=== PATIENT | female | born 1965 | race Caucasian/White ===

== ENCOUNTER → 2019-04-24 | Outpatient (CLI) | payer OTHER ==
[~2019-04-24] MED LIST: FLUO20CA8 PO; LISI10TA2 PO
--- NOTE | 2019-04-24 16:17 | REPMRS ---
Patient History The patient states she has not had a clinical breast exam in over a year. No known family history of cancer. Digital Mammo Screening Bilat: April 24, 2019 - Exam #: [id number] Bilateral CC and MLO view(s) were taken. Technologist: Lyn Penaloza, Technologist Prior study comparison: September 20, 2017, bilateral digital mammo screening bilat performed at [facility]. June 16, 2016, bilateral digital mammo screening bilat performed at [facility]. FINDINGS: There are scattered fibroglandular densities. There has been no change in the appearance of the mammogram from the prior studies. There is a mild amount of residual fibroglandular tissue which is fairly symmetric. There is no interval development of dominant mass, architectural distortion, or clustered microcalcification suggestive of malignancy. Assessment: BI-RADS/ACR category 1 mammogram. Negative Mammogram. Recommendation Routine screening mammogram in 1 year (for women over age 40). This mammogram was interpreted with the aid of an FDA-approved computer-aided dectection system. Electronically Signed By: Tunde Bonds MD 04/24/19 2905
== END ==
LOC: M RAD 15:36
PROVIDERS: ATTEND Student in an Organized Health Care Education/Training Program
DX: Z12.31 Encounter for screening mammogram for malignant neoplasm of breast (principal)

== ENCOUNTER → 2020-10-31 | Outpatient (CLI) | payer SELFPAY ==
[~2020-10-31] MED LIST changes: +FLUO20CA20 PO; -FLUO20CA8 PO; +LISI10TA15 PO; -LISI10TA2 PO
== END ==
LOC: M LABSMTC 10:10
PROVIDERS: ATTEND Pediatrics
DX: Z11.59 Encounter for screening for other viral diseases (principal)

== ENCOUNTER → 2022-10-10 | Outpatient (CLI) | payer OTHER ==
[~2022-10-10] MED LIST changes: +FLUO-96 PO; -FLUO20CA20 PO; -LISI10TA15 PO; +LISI10TA24 PO
== END ==
LOC: M WHC 15:34
PROVIDERS: ATTEND Student in an Organized Health Care Education/Training Program
DX: Z12.31 Encounter for screening mammogram for malignant neoplasm of breast (principal)

== ENCOUNTER → 2024-02-28 | Outpatient (CLI) | payer OTHER | LOC: M WHC 15:12 | PROVIDERS: ATTEND Nurse Practitioner Family | DX: Z12.31 Encounter for screening mammogram for malignant neoplasm of breast (principal) ==

== ENCOUNTER 2024-11-24 08:10 | Day surgery (SDC) | payer OTHER ==
[~2024-11-24] VITALS: Ht 160 cm; Wt 57.6 kg
[~2024-11-24 08:10] MED LIST changes: +LR 1,000 ML IV SCH
[2024-11-24] MEDS ORDERED: MIDAZOLAM INJ 2MG/2ML VIAL As Ordered ONE (08:57)
[2024-11-24] MEDS ORDERED: fentaNYL 100 MCG/2 ML INJECTION As Ordered ONE (08:57)
[2024-11-24] MEDS: PHENYLEPHRINE 2.5% OPHTH SOL 2ML OS SCH (09:08)
[2024-11-24] MEDS: CYCLOPENTOLATE 1% OPHTH SOLN 2ML BTL OS SCH (09:09)
[2024-11-24] MEDS: FLURBIPROFEN 0.03% OPHTH SOLN 2.5 ML OS SCH (09:09)
[2024-11-24] MEDS: TETRACAINE 0.5% OPHTH SOLN 4ML OS SCH (09:09)
[2024-11-24] MEDS: LIDOCAINE 1% SDV 5ML VIAL As Ordered ONE (10:39)
[2024-11-24] MEDS: CEFUROXIME 1MG/0.1ML INTRACAMERAL INJ As Ordered ONE (10:47)
[2024-11-24 10:57] VITALS: BP 119/80; TEMP 97.3; O2SAT 98
== END 2024-11-24 11:14 | disposition home or self-care (01) ==
LOC: M SDC 08:10
PROVIDERS: ATTEND Ophthalmology
DX: H25.12 Age-related nuclear cataract, left eye (principal); H25.012 Cortical age-related cataract, left eye; I10 Essential (primary) hypertension; Z79.899 Other long term (current) drug therapy
CPT/HCPCS: 66984; J0697; J2250; J3010; V2632

== ENCOUNTER → 2025-06-26 | Outpatient (CLI) | payer OTHER ==
[~2025-06-26] MED LIST changes: -LR 1,000 ML IV SCH
== END ==
LOC: M WHC 15:40
PROVIDERS: ATTEND Internal Medicine
DX: Z12.31 Encounter for screening mammogram for malignant neoplasm of breast (principal); R92.313 Mammographic fatty tissue density, bilateral breasts

== ENCOUNTER 2025-07-30 07:59 | Emergency (ER) | payer OTHER ==
[~2025-07-30] VITALS: Ht 160 cm; Wt 59.1 kg
[2025-07-30 08:07] VITALS: TEMP 96.5
[2025-07-30 08:24] LABS: BASO # 0.0 10^3/uL (0.0-0.2); BASO % 0.4 % (0.0-1.0); EOS # 0.0 10^3/uL (0.0-0.5); EOS % 0.0 % (0.0-3.0); LYMPH # 1.1 10^3/uL (1.5-5.0); LYMPH % 16.4 % (24.0-44.0); MONO # 0.9 10^3/uL (0.0-0.8); MONO % 12.2 % (2.0-8.0); NEUTROPHILS # 4.9 10^3/uL (1.5-8.5); NEUTROPHILS % 70.6 % (36.0-66.0); PLATELET COUNT, AUTOMATED 197 10^3/uL (150-450)
[2025-07-30] MEDS: NS (Normal Saline) 0.9% 1,000 ML IV ONE (08:41)
[2025-07-30 08:48] LABS: CALCIUM LEVEL 9.5 MG/DL (8.5-10.1); CARBON DIOXIDE LEVEL 30 MMOL/L (20-31); CHLORIDE LEVEL 100 MMOL/L (98-107); CK-MB VALUE MASS < 1.0 NG/ML (<3.6); CREATININE FOR GFR 0.89 MG/DL (0.55-1.30); GLOMERULAR FILTRATION RATE 75.1 (>51); POTASSIUM SERUM 3.8 MMOL/L (3.5-5.1); SODIUM LEVEL 141 MMOL/L (136-145)
[2025-07-30 08:53] LABS: CPK CREATINE PHOSPHOKINASE 122 U/L (34-145)
[2025-07-30 10:19] LABS: CK-MB VALUE MASS < 1.0 NG/ML (<3.6)
[2025-07-30 10:21] LABS: CPK CREATINE PHOSPHOKINASE 112 U/L (34-145)
[2025-07-30 11:00] VITALS: BP 111/64; O2SAT 97
== END 2025-07-30 11:54 | disposition home or self-care (01) ==
LOC: EDBD 07:59 → M ED 07:59
DX: R55 Syncope and collapse (principal); I10 Essential (primary) hypertension; Z79.899 Other long term (current) drug therapy; Z87.42 Personal history of other diseases of the female genital tract